=== PATIENT | male | born 1950 | race Caucasian/White ===

== ENCOUNTER → 2022-12-18 | Outpatient (CLI) | payer MEDICARE ==
[2022-12-18 15:16] LABS: HCT 46.4 %; HGB 15.2 d/dL; MCH 31.3 pg; MCHC 32.8 d/dL; MCV 95.5 FL; Mean Platelet Volume 10.8 FL; NRBC Per 100 WBC 0 X 10*3/uL; Platelet Count 189 X 10*3/uL; RBC 4.86 X 10*6/uL; RDW 12.2 %; WBC 5.59 X 10*3/uL
== END | disposition home or self-care (01) ==
LOC: LABWHC1 08:59
PROVIDERS: ATTEND Orthopaedic Surgery
DX: M25.552 Pain in left hip (principal); M16.12 Unilateral primary osteoarthritis, left hip; R00.1 Bradycardia, unspecified; R94.31 Abnormal electrocardiogram [ECG] [EKG]
CPT/HCPCS: 36415; 83036; 85027; 93005